=== PATIENT | male | born 1990 | race Caucasian/White ===

== ENCOUNTER 2019-09-14 09:35 | Inpatient (IN) | payer OTHER ==
[~2019-09-14] VITALS: Ht 172.7 cm; Wt 70.0 kg
[~2019-09-14 09:35] MED LIST: AMOX500C2 PO; BENZ100C18 PO; CEFP500T4 PO; CRUT1EAC16 MC; HYDR-34 PO; HYDR-3720 PO; LVT.1T PO; METH4TAB PO
[2019-09-14] MEDS ORDERED: LEVO125T6 PO (09:56)
[2019-09-14] MEDS ORDERED: KETOROLAC 30 MG/ML VIAL IVP STA (10:05)
[2019-09-14] MEDS ORDERED: LACTATED RINGERS 1,000 ML IV STA (10:05)
--- NOTE | 2019-09-14 10:12 | ED General ---
General Chief Complaint: Abdominal/GI Problems Stated Complaint: N/V;BODY ACHES Nursing Triage Note: SENT OVER FROM [facility] FOR DEHYDRATION. PT COMPLIANS OF N/V SINCE SAT Nursing Sepsis Screen: No Definite Risk Source of Information: Patient, Family Exam Limitations: No Limitations History of Present Illness Date Seen by Provider: Sep 14, 2019 Time Seen by Provider: 09:55 Initial Comments Here with report of body aches, chills, vomiting, weakness and overall feeling terrible for the last 3-4 days. Went to the [facility] today and was told to come here due to concerns of dehydration. Patient has been able to drink some and did have a little chicken soup yesterday. He has vomited after drinking and vomits after eating as well. He has not had anything for the pain today. Denies diarrhea currently. Denies significant cough. Timing/Duration: 3-4 Days Severity: Moderate Associated Systoms: No Chest Pain, No Cough; Fever/Chills, Malaise, Nausea/Vomiting; No Rash; Shortness of Air (with activity), Weakness Allergies and Home Medications Allergies Coded Allergies: No Known Drug Allergies (Unverified , 12/04/11) Patient Home Medication List Home Medication List Reviewed: Yes Review of Systems Review of Systems Constitutional: see HPI, malaise, weakness EENTM: see HPI Respiratory: see HPI; No cough; dyspnea on exertion Cardiovascular: No chest pain, No edema Gastrointestinal: No abdominal pain; nausea, vomiting Genitourinary: decreased output; No pain Musculoskeletal: No back pain; muscle pain Skin: no symptoms reported Psychiatric/Neurological: No Symptoms Reported Past Ruccxte-Otwsum-Igbjpp Hx Past Med/Social Hx: Reviewed Nursing Past Med/Soc Hx Patient Social History Alcohol Use: Occasionally Uses Recreational Drug Use: No Smoking Status: Never a Smoker Recent Foreign Travel: No Contact w/Someone Who Travel: No Recent Infectious Disease Expo: No Past Medical History Surgeries: No Respiratory: No Cardiac: No Neurological: No Reproductive Disorders: No Sexually Transmitted Disease: No HIV/AIDS: No Gastrointestinal: No Musculoskeletal: No Endocrine: Yes Hyperthyroidism Cancer: No Psychosocial: No Integumentary: No Blood Disorders: No Family Medical History Reviewed Nursing Family Hx No Pertinent Family Hx Physical Exam Vital Signs Vital Signs - First Documented 09/14/19 09:41 Temp 35.0 Pulse 68 Resp 16 B/P (MAP) 104/79 (87) Pulse Ox 100 O2 Delivery Room Air Capillary Refill : Less Than 3 Seconds Height, Weight, BMI Height: 5'8" Weight: 160lbs. oz. 72.677909db; 24.00 BMI Method:Stated General Appearance: No Apparent Distress, WD/WN HEENT: PERRL/EOMI, TMs Normal, Pharynx Normal Neck: Full Range of Motion, Normal Inspection, Non Tender, Supple Respiratory: Chest Non Tender, Lungs Clear, Normal Breath Sounds Cardiovascular: Regular Rate, Rhythm, No Murmur Gastrointestinal: Normal Bowel Sounds, Non Tender, Soft Back: Normal Inspection, No CVA Tenderness, No Vertebral Tenderness Extremity: Normal Range of Motion, Non Tender Neurologic/Psychiatric: Alert, Oriented x3 Skin: Normal Color, Warm/Dry Progress/Results/Core Measures Suspected Sepsis Recent Fever Within 48 Hours: No Infection Criteria Present: Suspected New Infection New/Unexplained Altered Menta: No Sepsis Screen: No Definite Risk SIRS Temperature: Pulse: 68 Respiratory Rate: 16 Laboratory Tests 09/14/19 10:18: White Blood Count 5.4 Blood Pressure 104 /79 Mean: 87 Laboratory Tests 09/14/19 10:18: Creatinine 1.33H, Platelet Count 287, Total Bilirubin 1.1H Results/Orders Lab Results Laboratory Tests Test 09/14/19 10:05 09/14/19 10:18 Range/Units Urine Color YELLOW Urine Clarity CLEAR Urine pH 6.0 5-9 Urine Specific Leonard 1.025 H 1.016-1.022 Urine Protein NEGATIVE NEGATIVE Urine Glucose (UA) NEGATIVE NEGATIVE Urine Ketones 2+ H NEGATIVE Urine Nitrite NEGATIVE NEGATIVE Urine Bilirubin NEGATIVE NEGATIVE Urine Urobilinogen 4.0 < = 1.0 MG/DL Urine Leukocyte Esterase NEGATIVE NEGATIVE Urine RBC (Auto) NEGATIVE NEGATIVE Urine RBC NONE /HPF Urine WBC NONE /HPF Urine Squamous Epithelial Cells NONE /HPF Urine Crystals NONE /LPF Urine Bacteria NEGATIVE /HPF Urine Casts NONE /LPF Urine Mucus SMALL H /LPF Urine Culture Indicated NO White Blood Count 5.4 4.3-11.0 10^3/uL Red Blood Count 5.47 4.35-5.85 10^6/uL Hemoglobin 16.3 13.3-17.7 G/DL Hematocrit 42 40-54 % Mean Corpuscular Volume 77 L 80-99 FL Mean Corpuscular Hemoglobin 30 25-34 PG Mean Corpuscular Hemoglobin Concent 39 H 32-36 G/DL Red Cell Distribution Width 13.3 10.0-14.5 % Platelet Count 287 130-400 10^3/uL Mean Platelet Volume 9.8 7.4-10.4 FL Neutrophils (%) (Auto) 61 42-75 % Lymphocytes (%) (Auto) 25 12-44 % Monocytes (%) (Auto) 10 0-12 % Eosinophils (%) (Auto) 4 0-10 % Basophils (%) (Auto) 0 0-10 % Neutrophils # (Auto) 3.3 1.8-7.8 X 10^3 Lymphocytes # (Auto) 1.4 1.0-4.0 X 10^3 Monocytes # (Auto) 0.5 0.0-1.0 X 10^3 Eosinophils # (Auto) 0.2 0.0-0.3 10^3/uL Basophils # (Auto) 0.0 0.0-0.1 10^3/uL Sodium Level 110 *L 135-145 MMOL/L Potassium Level 4.8 3.6-5.0 MMOL/L Chloride Level 78 L 98-107 MMOL/L Carbon Dioxide Level 20 L 21-32 MMOL/L Anion Gap 12 5-14 MMOL/L Blood Urea Nitrogen 15 7-18 MG/DL Creatinine 1.33 H 0.60-1.30 MG/DL Estimat Glomerular Filtration Rate > 60 BUN/Creatinine Ratio 11 Glucose Level 75 70-105 MG/DL Calcium Level 10.0 8.5-10.1 MG/DL Corrected Calcium 8.5-10.1 MG/DL Total Bilirubin 1.1 H 0.1-1.0 MG/DL Aspartate Amino Transf (AST/SGOT) 60 H 5-34 U/L Alanine Aminotransferase (ALT/SGPT) 37 0-55 U/L Alkaline Phosphatase 79 40-136 U/L Total Protein 8.8 H 6.4-8.2 GM/DL Albumin 5.0 H 3.2-4.5 GM/DL Micro Results Microbiology 09/14/19 Influenza Types A,B Antigen (NELSY) - Final, Complete My Orders Orders - REGAN SHERMAN MD Influenza A And B Antigens (09/14/19 09:44) Cbc With Automated Diff (09/14/19 10:05) Comprehensive Metabolic Panel (1/14/20 10:05) Ua Culture If Indicated (09/14/19 10:05) Lactated Ringers (Lr 1000 Ml Iv Solution (09/14/19 10:05) Ed Iv/Invasive Line Start (09/14/19 10:05) Ketorolac Injection (Toradol Injection) (09/14/19 10:05) Thyroid Analyzer (09/14/19 11:33) Ns Iv 1000 Ml (Sodium Chloride 0.9%) (09/14/19 11:34) Ed Iv/Invasive Line Start (09/14/19 11:38) Ns Iv 500 Ml (Sodium Chloride 0.9%) (09/14/19 11:38) Vital Signs/I&O 09/14/19 09:41 Temp 35.0 Pulse 68 Resp 16 B/P (MAP) 104/79 (87) Pulse Ox 100 O2 Delivery Room Air Capillary Refill : Less Than 3 Seconds Blood Pressure Mean: 87 Progress Note : Progress Note Seen and evaluated. Given like symptoms, we will go ahead and initiate rehydration with IV fluids. LR 1 L bolus. Labs and UA ordered. Toradol 30 mg IV. Monitor patient. 1140: Sodium resulted in his low. I do believe this is related to volume loss from vomiting. There is no edema. He is actually feeling better now and is not dizzy and was able to stand without difficulty. Blood pressure st ill is a little low and we will go ahead and do a 500 mL bolus of normal saline and then initiate normal saline at 125 an hour. I discussed the case with Dr. Wilkerson and she accepts patient for admission, observation status. Patient and family agree to plan. Departure Communication (Admissions) Time/Spoke to Admitting Phy: 11:40 Impression Primary Impression: Hyponatremia Additional Impression: Nausea with vomiting Qualified Codes: R11.2 - Nausea with vomiting, unspecified Disposition: ADMITTED INPATIENT Condition: Stable Admissions Decision to Admit Reason: Admit from ER (General) Decision to Admit/Date: Sep 14, 2019 Time/Decision to Admit Time: 11:40 Departure-Patient Inst. Referrals: OTILIO MCKEON DO (PCP) Primary Care Physician DANNY MCKEON, DNP (Family) Primary Care Physician REGAN SHERMAN MD Sep 14, 2019 10:12
[2019-09-14 10:31] LABS: BASOPHILS % (AUTO) 0 % (0-10); EOSINOPHILS # (AUTO) 0.2 10^3/uL (0.0-0.3); EOSINOPHILS % (AUTO) 4 % (0-10); HEMATOCRIT 42 % (40-54); HEMOGLOBIN 16.3 G/DL (13.3-17.7); LYMPHOCYTES # (AUTO) 1.4 X 10^3 (1.0-4.0); LYMPHOCYTES % (AUTO) 25 % (12-44); MEAN CORPUSCULAR HEMOGLOBIN 30 PG (25-34); MEAN CORPUSCULAR HGB CONC 39 G/DL (32-36); MEAN CORPUSCULAR VOLUME 77 FL (80-99); MEAN PLATELET VOLUME 9.8 FL (7.4-10.4); MONOCYTES # (AUTO) 0.5 X 10^3 (0.0-1.0); MONOCYTES % (AUTO) 10 % (0-12); NEUTROPHILS # (AUTO) 3.3 X 10^3 (1.8-7.8); NEUTROPHILS % (AUTO) 61 % (42-75); PLATELET COUNT 287 10^3/uL (130-400); RED CELL DISTRIBUTION WIDTH 13.3 % (10.0-14.5); WHITE BLOOD COUNT 5.4 10^3/uL (4.3-11.0)
[2019-09-14 10:32] LABS: BILIRUBIN,URINE NEGATIVE (NEGATIVE); CLARITY,URINE CLEAR; COLOR,URINE YELLOW; GLUCOSE, URINE (UA) NEGATIVE (NEGATIVE); KETONES,URINE 2+ (NEGATIVE); LEUKOCYTE ESTERASE ,URINE NEGATIVE (NEGATIVE); NITRITE,URINE NEGATIVE (NEGATIVE); PROTEIN,URINE NEGATIVE (NEGATIVE)
[2019-09-14 10:37] LABS: BACTERIA,URINE NEGATIVE /HPF
[2019-09-14 10:53] LABS: ALANINE AMINOTRANSFERASE 37 U/L (0-55); ALKALINE PHOSPHATASE 79 U/L (40-136); BILIRUBIN,TOTAL 1.1 MG/DL (0.1-1.0); BUN/CREATININE RATIO 11; CARBON DIOXIDE 20 MMOL/L (21-32); CREATININE SERUM 1.33 MG/DL (0.60-1.30); GFR ESTIMATED > 60; GLUCOSE 75 MG/DL (70-105); POTASSIUM 4.8 MMOL/L (3.6-5.0); TOTAL PROTEIN 8.8 GM/DL (6.4-8.2)
[2019-09-14 11:20] LABS: CHLORIDE 78 MMOL/L (98-107); SODIUM 110 MMOL/L (135-145)
--- NOTE | 2019-09-14 11:22 | NUR ---
IN TALKING TO PT AT THIS TIME.
--- NOTE | 2019-09-14 11:30 | NUR ---
BP IN THE 80'S. PT ASYMTOMATIC. DR FELIX.
[2019-09-14] MEDS ORDERED: NS IV 500 ML 500 ML IV ONE ×2 (11:38→17:15)
[2019-09-14] MEDS: NS IV 1000 ML 1,000 ML IV ONE ×2 (11:39→12:23)
--- NOTE | 2019-09-14 12:05 | NUR ---
BP CONTINUES TO BE IN THE 80'S. WILL HOLD IN ER TILL BP IS HIGHER FOR ADMIT. NOTIFIED.
--- NOTE | 2019-09-14 12:44 | NUR ---
JADEN RAMON admitted to room 405-1, with an admitting diagnosis of hyponatremia , on 09/14/19 from ED via wheelchair, accompanied by staff. JADEN RAMON introduced to surroundings, call light, bed controls, phone, TV, temperature control, lights, meal times, smoking policy, visitor policy, side rail policy, bathrooms and showers. Patient Rights given to patient in the handbook. JADEN RAMON verbalizes understanding that [facility] is not responsible for the loss or damage to any personal effects or valuables that are kept in the patients possession during their hospitalization. The following Patient Care Plans were discussed with the patient: Discharge Planning, dehydration, medications, and pain management. JADEN RAMON verbalizes understanding of Interdisciplinary Patient Education. Patient and/or family were informed about the Rapid Response Team and its purpose.
[2019-09-14 12:49] LABS: TSH (THYROID ANALYZER) 271.18 UIU/ML (0.35-4.94)
[2019-09-14 12:50] LABS: FREE T4 (FREE THYROXINE) 0.64 NG/DL (0.70-1.48)
[2019-09-14] MEDS ORDERED: ONDANSETRON 4 MG/2 ML (SDV) Z0FRAN IV PRN (13:15)
[2019-09-14] MEDS ORDERED: CATHETER FLUSH 10 ML SYR IV PRN (13:15)
[2019-09-14] MEDS ORDERED: FLU QUADRIvalent (5+ YOA) 2019-2020 (AFLURIA) 0.5 ML IM ONE (13:15)
[2019-09-14 13:20] VITALS: BP 104/70
[2019-09-14] MEDS ORDERED: LEVOTHYROXINE 100 MCG INJ (SYNTHROID) VIAL IV NR (14:30)
--- NOTE | 2019-09-14 14:52 | History & Physical-Hospitalist ---
History of Present Illness HPI/Chief Complaint Patient is a 29-year-old male with past medical history of hyperthyroidism status post ablation who presented to the emergency department due to nausea and vomiting. He states the symptoms started 3-4 days ago. He had no sick contacts. He was seen at urgent care today and recommended evaluation in the emergency department. In the ER he was found to have a sodium of 110. Upon further evaluation he was found to have a TSH of 271 and thus he was further questioned about his compliance with Synthroid. He states he misses over half of his doses. He had also been off of it for a few months. He was mildly hypotensive with a systolic in 80s in the emergency room. Source: patient Exam Limitations: no limitations Date Seen 09/14/19 Time Seen by a Provider: 14:47 Attending Physician Vignesh Wilkerson MD PCP Alexx Cabrera DO Referring Physician Date of Admission Sep 14, 2019 at 11:57 Home Medications & Allergies Home Medications Reviewed patient Home Medication Reconciliation performed by pharmacy medication reconciliations diamond powder technician and/or nursing. Patients Allergies have been reviewed. Allergies Allergies Coded Allergies No Known Drug Allergies (Unverified12/04/11) Past Qvfcmkv-Mwpayh-Ndzoiv Hx Past Med/Social Hx: Reviewed Nursing Past Med/Soc Hx Patient Social History Alcohol Use: Rarely Uses Recreational Drug Use: No Smoking Status: Never a Smoker Recent Foreign Travel: No Contact w/other who traveled: No Recent Infectious Disease Expo: No Past Medical History Reproductive: No Sexually Transmitted Disease: No HIV/AIDS: No Endocrine: Hypothyroidsim History of Blood Disorders: No Family History Reviewed Nursing Family Hx No Pertinent Family Hx Review of Systems Constitutional: malaise, weakness EENTM: no symptoms reported Respiratory: no symptoms reported Cardiovascular: no symptoms reported Gastrointestinal: nausea, vomiting Physical Exam Physical Exam Vital Signs Vital Signs - First Documented 09/14/19 09:41 Temp 35.0 Pulse 68 Resp 16 B/P (MAP) 104/79 (87) Pulse Ox 100 O2 Delivery Room Air Capillary Refill : Less Than 3 Seconds Height, Weight, BMI Height: 5'8" Weight: 160lbs. oz. 72.151461fr; 23.10 BMI Method:Stated General Appearance: No Apparent Distress, Thin, Other (ill appearing) HEENT: No Scleral Icterus (L), No Scleral Icterus (R); Other (dry mucus membranes) Neck: Normal Inspection, Supple; No Thyromegaly Respiratory: Lungs Clear, No Accessory Muscle Use, No Respiratory Distress Cardiovascular: Regular Rate, Rhythm, No Murmur Gastrointestinal: Normal Bowel Sounds, Non Tender, Soft Extremity: No Calf Tenderness, No Pedal Edema Neurologic/Psychiatric: Alert, Oriented x3, Normal Mood/Affect Skin: Normal Color, Warm/Dry; No Diaphoresis Results Results/Procedures Labs Laboratory Tests 09/14/19 10:18 09/14/19 15:20 Patient resulted labs reviewed. Assessment/Plan Admission Diagnosis Myxedema Coma Admission Status: Inpatient Order (span 2 midnights) Reason for Inpatient Admission: IV synthroid,. high risk for decompsenation, anticipate more thwn 2 midnights Assessment and Plan myxedema coma Hypothyroidism Hypothermic and relatively bradycardiac (inappropriately normal HR for hy potensive and dehydration) IV synthroid Solu Cortef Noncompliant with meds Dr Vazquez consulted, appreciate recs Hypovolemic Hyponatremia Dehydration IVF Repeat BMP this afternoon Nausea and Vomiting Continue IVF Zofran and Phenergan Diagnosis/Problems Diagnosis/Problems (1) Myxedema Status: Acute (2) Hypothyroidism Status: Acute Qualifiers: Hypothyroidism type: postablative Qualified Codes: E89.0 - Postprocedural hypothyroidism (3) Dehydration Status: Acute (4) Hyponatremia Status: Acute (5) Nausea with vomiting Status: Acute Qualifiers: Vomiting type: unspecified Vomiting Intractability: non-intractable Qualified Codes: R11.2 - Nausea with vomiting, unspecified Clinical Quality Measures DVT/VTE Risk/Contraindication: RFS Level Per Nursing on Admit: 0=No Risk/No VTE PPX VIGNESH WILKERSON MD Sep 14, 2019 14:52
--- NOTE | 2019-09-14 15:45 | NUR ---
PT TRANSFERRED TO [facility] VIA BED W/ 4TH FLOOR STAFF. PT A&O, NO C/O AT THIS TIME. IVF INFUSING. VSS, PT PLACED ON MONITORS.
--- NOTE | 2019-09-14 15:50 | NUR ---
Report called to Brenda RN, patient transferred to room CU 4, patient belongings with patient.
[2019-09-14 15:52] LABS: BUN/CREATININE RATIO 14; CALCIUM 7.8 MG/DL (8.5-10.1); CARBON DIOXIDE 20 MMOL/L (21-32); CHLORIDE 84 MMOL/L (98-107); CREATININE SERUM 0.99 MG/DL (0.60-1.30); GFR ESTIMATED > 60; GLUCOSE 77 MG/DL (70-105); POTASSIUM 4.3 MMOL/L (3.6-5.0)
--- NOTE | 2019-09-14 15:58 | Pulmonary Consultation ---
History of Present Illness History of Present Illness Date of Admission Allergies and Home Medications Allergies Coded Allergies: No Known Drug Allergies (Unverified , 12/04/11) Home Medications Levothyroxine Sodium 125 Mcg Tablet, 125 MCG PO DAILY, (Reported) Past Dhcguio-Qqyalk-Gddwgg Hx Past Med/Social Hx: Reviewed Nursing Past Med/Soc Hx Patient Social History Alcohol Use: Rarely Uses Recreational Drug Use: No Smoking Status: Never a Smoker Recent Foreign Travel: No Contact w/Someone Who Travel: No Recent Infectious Disease Expo: No Past Medical History Surgeries: No Respiratory: No Cardiac: No Neurological: No Reproductive Disorders: No Sexually Transmitted Disease: No HIV/AIDS: No Gastrointestinal: No Musculoskeletal: No Endocrine: Yes Hypothyroidsim Cancer: No Psychosocial: No Integumentary: No Blood Disorders: No Family Medical History Reviewed Nursing Family Hx No Pertinent Family Hx Sepsis Event Evaluation Height, Weight, BMI Height: 5'8" Weight: 160lbs. oz. 72.785080ci; 23.10 BMI Method:Stated Exam Exam Vital Signs Date Time Temp Pulse Resp B/P (MAP) Pulse Ox O2 Delivery O2 Flow Rate FiO2 09/14/19 13:20 36.3 79 20 104/70 100 Room Air 09/14/19 13:06 Room Air 09/14/19 12:35 69 18 109/72 98 Room Air 09/14/19 09:41 35.0 68 16 104/79 (87) 100 Room Air Height & Weight Height: 5'8" Weight: 160lbs. oz. 72.193186vq; 23.10 BMI Method:Stated General Appearance: No Apparent Distress, WD/WN HEENT: PERRL/EOMI, TMs Normal, Pharynx Normal Neck: Full Range of Motion, Normal Inspection, Non Tender, Supple Respiratory: Chest Non Tender, Lungs Clear, Normal Breath Sounds Cardiovascular: Regular Rate, Rhythm, No Murmur Capillary Refill: Less Than 3 Seconds Extremity: Normal Range of Motion, Non Tender Neurologic/Psychiatric: Alert, Oriented x3 Skin: Normal Color, Warm/Dry Results Lab Laboratory Tests 09/14/19 10:18 09/14/19 15:20 Assessment/Plan Assessment/Plan Hypothyroind with myxedema coma IV synthroid 50mcg daily Solu Cortef Noncompliant with meds Hypovolemic Hyponatremia -Monitor Dehydration IVF Repeat BMP this afternoon Intractable Nausea and Vomiting Continue IVF Zofran and Hectorergan MARY ANN HINDS DO Sep 14, 2019 15:58
[2019-09-14 16:00] VITALS: BP 94/65
[2019-09-14] MEDS: NS IV 1000 ML 1,000 ML IV SCH ×2 (16:01→20:34)
[2019-09-14] MEDS: HYDROCORTISONE 100 MG/2 ML (Solu-CORTEF) VIAL IV SCH ×2 (16:01→22:01)
[2019-09-14 16:31] LABS: SODIUM 110 MMOL/L (135-145)
[2019-09-14] MEDS ORDERED: NS IV 500 ML 500 ML ONE (17:07)
--- NOTE | 2019-09-14 17:09 | NUR ---
PT'S BP DECREASED TO 80'S/50'S. PT ASYMPTOMATIC. DR GILBERT NOTIFIED. NEW ORDERS RECEIVED.
[2019-09-14 20:00] VITALS: BP 98/53
[2019-09-15] VITALS (7 sets, daily range): BP systolic 84–99; BP diastolic 54–71
[2019-09-15] MEDS: NS IV 1000 ML 1,000 ML IV SCH ×4 (00:08→21:24)
[2019-09-15 03:41] LABS: HEMOGLOBIN 13.7 G/DL (13.3-17.7); WHITE BLOOD COUNT 5.5 10^3/uL (4.3-11.0)
[2019-09-15 03:57] LABS: BUN/CREATININE RATIO 10; CALCIUM 8.5 MG/DL (8.5-10.1); CARBON DIOXIDE 18 MMOL/L (21-32); CHLORIDE 94 MMOL/L (98-107); CREATININE SERUM 1.24 MG/DL (0.60-1.30); GFR ESTIMATED > 60; GLUCOSE 121 MG/DL (70-105); MAGNESIUM 1.9 MG/DL (1.6-2.4); PHOSPHORUS 3.7 MG/DL (2.3-4.7); POTASSIUM 5.1 MMOL/L (3.6-5.0)
[2019-09-15 04:03] LABS: SODIUM 120 MMOL/L (135-145)
[2019-09-15 04:20] LABS: FREE T4 (FREE THYROXINE) 0.74 NG/DL (0.70-1.48)
--- NOTE | 2019-09-15 05:13 | Pulmonary Progress Note ---
Subjective Time Seen by a Provider: 05:13 Subjective/Events-last exam Pt is doing better. Sepsis Event Evaluation Height, Weight, BMI Height: 5'8" Weight: 160lbs. oz. 72.800178ye; 23.10 BMI Method:Stated Exam Exam Vital Signs Date Time Temp Pulse Resp B/P (MAP) Pulse Ox O2 Delivery O2 Flow Rate FiO2 09/15/19 03:58 36.6 74 14 93/71 (78) 99 Room Air 09/15/19 01:00 75 09/15/19 00:00 36.0 81 12 93/64 (74) 97 Room Air 09/14/19 20:00 85 12 98/53 (68) 99 Room Air 09/14/19 20:00 36.8 09/14/19 20:00 99 Room Air 09/14/19 19:00 82 09/14/19 16:50 88 09/14/19 16:00 36.5 09/14/19 16:00 79 14 94/65 (75) 97 Room Air 09/14/19 15:45 Room Air 09/14/19 13:20 36.3 79 20 104/70 100 Room Air 09/14/19 13:06 Room Air 09/14/19 12:35 69 18 109/72 98 Room Air 09/14/19 09:41 35.0 68 16 104/79 (87) 100 Room Air I & O 09/15/19 07:00 Intake Total 5970 ml Output Total 2000 ml Balance 3970 ml Height & Weight Height: 5'8" Weight: 160lbs. oz. 72.990747jk; 23.10 BMI Method:Stated General Appearance: No Apparent Distress, Thin, Other (ill appearing) HEENT: No Scleral Icterus (L), No Scleral Icterus (R); Other (dry mucus membranes) Neck: Normal Inspection, Supple; No Thyromegaly Respiratory: Lungs Clear, No Accessory Muscle Use, No Respiratory Distress Cardiovascular: Regular Rate, Rhythm, No Murmur Capillary Refill: Less Than 3 Seconds Extremity: No Calf Tenderness, No Pedal Edema Neurologic/Psychiatric: Alert, Oriented x3, Normal Mood/Affect Skin: Normal Color, Warm/Dry; No Diaphoresis Results Lab Laboratory Tests 09/14/19 10:18 09/14/19 15:20 09/15/19 03:26 Assessment/Plan Assessment/Plan Hypothyroind with myxedema coma Cont IV synthroid 50mcg daily Continue Solu Cortef Noncompliant with meds Hypovolemic Hyponatremia -Monitor -Improving continue to monitor and repeat labs at 1300 Hyperkalemia -Montior Dehydration IVF Repeat BMP this afternoon Intractable Nausea and Vomiting - Improved Continue IVF Zofran and Phenergan MARY ANN HINDS DO Sep 15, 2019 05:13
[2019-09-15] MEDS: HYDROCORTISONE 100 MG/2 ML (Solu-CORTEF) VIAL IV SCH ×3 (06:15→21:24)
[2019-09-15] MEDS ORDERED: LEVOTHYROXINE 100 MCG INJ (SYNTHROID) VIAL IV SCH (09:00)
--- NOTE | 2019-09-15 13:23 | Progress Note - Hospitalist ---
Subjective HPI/CC On Admission Date Seen by Provider: Sep 15, 2019 Time Seen by Provider: 13:20 Patient is a 29-year-old male with past medical history of hyperthyroidism status post ablation who presented to the emergency department due to nausea and vomiting. He states the symptoms started 3-4 days ago. He had no sick contacts. He was seen at urgent care today and recommended evaluation in the emergency department. In the ER he was found to have a sodium of 110. Upon further evaluation he was found to have a TSH of 271 and thus he was further questioned about his compliance with Synthroid. He states he misses over half of his doses. He had also been off of it for a few months. He was mildly hypotensive with a systolic in 80s in the emergency room. Subjective/Events-last exam Pt reports feeling much better today. No complaints. States he feels better today than he did even a week ago before symptoms started. Objective Exam Vital Signs Vital Signs Date Time Temp Pulse Resp B/P (MAP) Pulse Ox O2 Delivery O2 Flow Rate FiO2 09/15/19 08:00 36.6 85 9 90/64 (73) 100 Room Air Capillary Refill : Less Than 3 Seconds General Appearance: No Apparent Distress, WD/WN Respiratory: Lungs Clear, No Respiratory Distress Cardiovascular: Regular Rate, Rhythm, No Murmur Extremity: No Calf Tenderness, No Pedal Edema Neurologic/Psychiatric: Alert, Oriented x3, Normal Mood/Affect Results/Procedures Lab Laboratory Tests 09/14/19 15:20 09/15/19 03:26 Patient resulted labs reviewed. Assessment/Plan Assessment and Plan Assess & Plan/Chief Complaint myxedema coma Hypothyroidism Much improved today IV synthroid today, transition to oral tomorrow Solu Cortef Noncompliant with meds Dr Vazquez consulted, appreciate recs Hypovolemic Hyponatremia Dehydration Na improved to 120 today Trend Nausea and Vomiting- resolved eating quesadilla today Zofran and Phenergan Diagnosis/Problems Diagnosis/Problems (1) Myxedema Status: Acute (2) Hypothyroidism Status: Acute Qualifiers: Hypothyroidism type: postablative Qualified Codes: E89.0 - Postprocedural hypothyroidism (3) Dehydration Status: Acute (4) Hyponatremia Status: Acute (5) Nausea with vomiting Status: Acute Qualifiers: Vomiting type: unspecified Vomiting Intractability: non-intractable Qualified Codes: R11.2 - Nausea with vomiting, unspecified Clinical Quality Measures DVT/VTE Risk/Contraindication: RFS Level Per Nursing on Admit: 0=No Risk/No VTE PPX VIGNESH GILBERT MD Sep 15, 2019 13:23
[2019-09-15 13:35] LABS: BUN/CREATININE RATIO 9; CALCIUM 8.5 MG/DL (8.5-10.1); CARBON DIOXIDE 22 MMOL/L (21-32); CHLORIDE 100 MMOL/L (98-107); CREATININE SERUM 1.26 MG/DL (0.60-1.30); GFR ESTIMATED > 60; GLUCOSE 112 MG/DL (70-105); POTASSIUM 4.2 MMOL/L (3.6-5.0); SODIUM 129 MMOL/L (135-145)
[2019-09-16] MEDS ORDERED: MELATONIN 3 MG TABLET PO SCH (00:15)
[2019-09-16 04:14] LABS: BUN/CREATININE RATIO 11; CALCIUM 8.2 MG/DL (8.5-10.1); CARBON DIOXIDE 19 MMOL/L (21-32); CHLORIDE 105 MMOL/L (98-107); CREATININE SERUM 1.03 MG/DL (0.60-1.30); GFR ESTIMATED > 60; GLUCOSE 143 MG/DL (70-105); POTASSIUM 3.7 MMOL/L (3.6-5.0); SODIUM 132 MMOL/L (135-145)
[2019-09-16 04:50] VITALS: BP 94/52
--- NOTE | 2019-09-16 05:34 | Pulmonary Progress Note ---
Subjective Time Seen by a Provider: 06:24 Subjective/Events-last exam PT appears to be doing better. Sepsis Event Evaluation Height, Weight, BMI Height: 5'8" Weight: 160lbs. oz. 72.006557ue; 23.10 BMI Method:Stated Exam Exam Vital Signs Date Time Temp Pulse Resp B/P (MAP) Pulse Ox O2 Delivery O2 Flow Rate FiO2 09/16/19 04:50 35.3 86 20 94/52 (66) 99 Room Air 09/16/19 01:00 90 09/15/19 23:30 36.0 93 20 99/65 (76) 100 Room Air 09/15/19 20:00 Room Air 09/15/19 20:00 37.4 110 18 98/62 (74) 96 Room Air 09/15/19 19:00 101 09/15/19 16:00 37.1 93 16 99/64 (76) 95 Room Air 09/15/19 16:00 100 09/15/19 12:00 36.8 87 14 98/64 (75) 99 Room Air 09/15/19 08:00 36.6 85 9 90/64 (73) 100 Room Air 09/15/19 08:00 99 Room Air 09/15/19 06:35 97 I & O 09/16/19 07:00 Intake Total 1900 ml Output Total 2000 ml Balance -100 ml Height & Weight Height: 5'8" Weight: 160lbs. oz. 72.385806sn; 23.10 BMI Method:Stated General Appearance: No Apparent Distress, WD/WN HEENT: No Scleral Icterus (L), No Scleral Icterus (R); Other (dry mucus membranes) Neck: Normal Inspection, Supple; No Thyromegaly Respiratory: Lungs Clear, No Respiratory Distress Cardiovascular: Regular Rate, Rhythm, No Murmur Capillary Refill: Less Than 3 Seconds Extremity: No Calf Tenderness, No Pedal Edema Neurologic/Psychiatric: Alert, Oriented x3, Normal Mood/Affect Skin: Normal Color, Warm/Dry; No Diaphoresis Results Lab Laboratory Tests 09/14/19 10:18 09/14/19 15:20 09/15/19 03:26 09/15/19 13:10 09/16/19 03:42 Assessment/Plan Assessment/Plan Hypothyroind with myxedema coma Cont IV synthroid 50mcg daily Continue Solu Cortef Noncompliant with meds Hypovolemic Hyponatremia -Monitor -Improving continue to monitor and repeat labs at 1300 Hyperkalemia -Montior Dehydration IVF Repeat BMP this afternoon Intractable Nausea and Vomiting - Improved Continue IVF Zofran and Phenergan Pt appears to be doing better. I am going to sign off. Please call with any questions or concerns. MARY ANN HINDS DO Sep 16, 2019 05:34
[2019-09-16] MEDS ORDERED: LEVOTHYROXINE 125 MCG (LEVOTHROID) TABLET PO SCH (06:30)
[2019-09-16] MEDS: NS IV 1000 ML 1,000 ML IV SCH (06:35)
[2019-09-16] MEDS: HYDROCORTISONE 100 MG/2 ML (Solu-CORTEF) VIAL IV SCH (06:35)
[2019-09-16 07:41] VITALS: BP 97/65
[2019-09-16] MEDS ORDERED: LEVO125T6 PO (07:59)
--- NOTE | 2019-09-16 07:59 | Discharge Summary ---
Diagnosis/Chief Complaint Date of Admission Sep 14, 2019 at 20:21 Date of Discharge Admission Diagnosis Myxedema Coma Primary Care Sindhu Cabrerap,[facility] Discharge Diagnosis (1) Myxedema Status: Acute (2) Hypothyroidism Status: Acute (3) Dehydration Status: Acute (4) Hyponatremia Status: Acute (5) Nausea with vomiting Status: Acute Discharge Summary Procedures/Consulations Pulmonology- Dr Vazquez Discharge Physical Exam Allergies: Coded Allergies: No Known Drug Allergies (Unverified , 12/04/11) Vitals & I&Os Vital Signs Date Time Temp Pulse Resp B/P (MAP) Pulse Ox O2 Delivery O2 Flow Rate FiO2 09/16/19 07:42 Room Air 09/16/19 07:41 36.4 80 16 97/65 (76) 96 General Appearance: No Apparent Distress, WD/WN Respiratory: Lungs Clear, No Respiratory Distress Cardiovascular: Regular Rate, Rhythm, No Murmur Neurologic/Psychiatric: Alert, Oriented x3 Hospital Course Pt presented to the ER due to nausea and vomiting and was found to be dehydrated along with evidence of myxedema. He was given IV fluid resuscitation and due to inability to take oral medications he was started on IV Synthroid. He was also started on IV steroids. He was found to be profoundly hyponatremic and this was treated with normal saline only as he had not mental status changes. He states he misses at least half his doses of Synthroid and his TSH was 271. He was started on his home Synthroid when he was able to tolerate PO and did well and was discharged home in stable condition. Labs (last 24 hrs) Microbiology 09/14/19 Influenza Types A,B Antigen (NELSY) - Final, Complete Patient resulted labs reviewed. Pending Labs Discussion & Recommendations Discharge Planning: >30 minutes discharge planning Discharge Home Medications: Active Scripts Active Levothyroxine Sodium 125 Mcg Tablet 125 Mcg PO DAILY Instructions to patient/family Please see electronic discharge instructions given to patient. Clinical Quality Measures DVT/VTE Risk/Contraindication: RFS Level Per Nursing on Admit: 0=No Risk/No VTE PPX Copy Copies To 1: OTILIO CABRERA DO Problem Qualifiers (1) Hypothyroidism: Hypothyroidism type: postablative Qualified Codes: E89.0 - Postprocedural hypothyroidism (2) Nausea with vomiting: Vomiting type: unspecified Vomiting Intractability: non-intractable Qualified Codes: R11.2 - Nausea with vomiting, unspecified VIGNESH GILBERT MD Sep 16, 2019 07:59
--- NOTE | 2019-09-16 08:01 | Discharge Inst-Simple/Standard ---
Discharge Inst-Standard Discharge Medications New, Converted or Re-Newed RX: Transmitted to Pharmacy Patient Instructions/Follow Up Plan of Care/Instructions/FU: Please continue to take your medications every day as written. Please follow up with your primary care nurse practioner in the next week. Activity as Tolerated: Yes Discharge Diet: No Restrictions Return to The Hospital For: Nausea, vomiting, confusion, abdomina pain, if you feel you are getting worse. VIGNESH GILBERT MD Sep 16, 2019 08:01
== END 2019-09-16 08:45 | disposition home or self-care (01) | DRG 81 ==
LOC: EDUNIT# 09:35 → ER 09:36 → 4TH 11:57 → ICU 16:42 → OBSVTOIN 20:21 → ICU 09-15 09:09 → CSD 09-15 11:27
PROVIDERS: ADMIT Family Medicine; ATTEND Family Medicine
DX: E03.5 Myxedema coma (principal); E87.1 Hypo-osmolality and hyponatremia; E86.0 Dehydration
CPT/HCPCS: 36415; 80048; 80053; 81000; 82533; 83735; 84100; 84439; 84443; 85025; 85027; 87804; 96361; 96374

== ENCOUNTER 2019-10-25 11:06 | Observation (INO) | payer OTHER ==
[~2019-10-25] VITALS: Ht 172.7 cm; Wt 69.9 kg
[~2019-10-25 11:06] MED LIST changes: +LEVO125T6 PO
[2019-10-25] MEDS ORDERED: NS IV 1000 ML 1,000 ML IV SCH (11:30)
--- NOTE | 2019-10-25 11:42 | ED General ---
General Chief Complaint: General Problems/Pain Stated Complaint: SOA Nursing Triage Note: AMB TO ED WANTS THYROID CHECKED. REPORTS WE CAN DO IT FASTER THAN PCP Nursing Sepsis Screen: No Definite Risk Source of Information: Patient Exam Limitations: No Limitations History of Present Illness Date Seen by Provider: Oct 25, 2019 Time Seen by Provider: 11:40 Initial Comments To ER with reports of shortness of breath for several weeks, this is how he felt last month when he was admitted for hyponatremia/myxedema. He's been compliant with taking all of his levothyroxine at home he states, has not missed any doses. Denies cough denies fevers or chills. Timing/Duration: Other Allergies and Home Medications Allergies Coded Allergies: No Known Drug Allergies (Unverified , 12/04/11) Home Medications Levothyroxine Sodium 125 Mcg Tablet, 125 MCG PO DAILY Prescribed by: VIGNESH WILKERSON on 09/16/19 0759 Patient Home Medication List Home Medication List Reviewed: Yes Review of Systems Review of Systems Constitutional: see HPI; No chills, No fever EENTM: see HPI Respiratory: no symptoms reported, see HPI, short of breath Cardiovascular: no symptoms reported Genitourinary: no symptoms reported Musculoskeletal: no symptoms reported Skin: no symptoms reported Psychiatric/Neurological: No Symptoms Reported Hematologic/Lymphatic: No Symptoms Reported Past Fsoqsjk-Iomeyy-Iswbxj Hx Patient Social History Alcohol Use: Denies Use Recreational Drug Use: No Smoking Status: Never a Smoker Recent Foreign Travel: No Contact w/Someone Who Travel: No Recent Infectious Disease Expo: No Past Medical History Surgeries: No Respiratory: No Cardiac: No Neurological: No Reproductive Disorders: No Sexually Transmitted Disease: No HIV/AIDS: No Gastrointestinal: No Musculoskeletal: No Endocrine: Yes Hypothyroidsim Cancer: No Psychosocial: No Integumentary: No Blood Disorders: No Family Medical History No Pertinent Family Hx Physical Exam Vital Signs Vital Signs - First Documented 10/25/19 11:22 Temp 36.7 Pulse 96 B/P (MAP) 92/58 (69) Pulse Ox 100 O2 Delivery Room Air Capillary Refill : Less Than 3 Seconds Height, Weight, BMI Height: 5'8" Weight: 160lbs. oz. 72.238676ou; 22.00 BMI Method:Stated General Appearance: No Apparent Distress, WD/WN, Other (alert and oriented, conversive) Eyes: Bilateral Eye Normal Inspection, Bilateral Eye PERRL, Bilateral Eye EOMI HEENT: PERRL/EOMI, TMs Normal Neck: Full Range of Motion, Normal Inspection Respiratory: Normal Breath Sounds, No Accessory Muscle Use, No Respiratory Distress Cardiovascular: Regular Rate, Rhythm, Normal Peripheral Pulses Gastrointestinal: Normal Bowel Sounds, Non Tender, Soft Extremity: Normal Capillary Refill, Normal Inspection Neurologic/Psychiatric: Alert, Oriented x3 Skin: Normal Color, Warm/Dry Progress/Results/Core Measures Suspected Sepsis Recent Fever Within 48 Hours: No Infection Criteria Present: None New/Unexplained Altered Menta: No Sepsis Screen: No Definite Risk SIRS Temperature: Pulse: 96 Respiratory Rate: Laboratory Tests 10/25/19 11:33: White Blood Count 4.2L Blood Pressure 92 /58 Mean: 69 Laboratory Tests 10/25/19 11:33: Creatinine 1.15, Platelet Count 289, Total Bilirubin 0.7 Results/Orders Lab Results Laboratory Tests Test 10/25/19 11:33 Range/Units White Blood Count 4.2 L 4.3-11.0 10^3/uL Red Blood Count 4.37 4.35-5.85 10^6/uL Hemoglobin 13.4 13.3-17.7 G/DL Hematocrit 37 L 40-54 % Mean Corpuscular Volume 85 80-99 FL Mean Corpuscular Hemoglobin 31 25-34 PG Mean Corpuscular Hemoglobin Concent 36 32-36 G/DL Red Cell Distribution Width 13.1 10.0-14.5 % Platelet Count 289 130-400 10^3/uL Mean Platelet Volume 9.3 7.4-10.4 FL Neutrophils (%) (Auto) 50 42-75 % Lymphocytes (%) (Auto) 32 12-44 % Monocytes (%) (Auto) 11 0-12 % Eosinophils (%) (Auto) 6 0-10 % Basophils (%) (Auto) 0 0-10 % Neutrophils # (Auto) 2.1 1.8-7.8 X 10^3 Lymphocytes # (Auto) 1.4 1.0-4.0 X 10^3 Monocytes # (Auto) 0.5 0.0-1.0 X 10^3 Eosinophils # (Auto) 0.3 0.0-0.3 10^3/uL Basophils # (Auto) 0.0 0.0-0.1 10^3/uL Sodium Level 121 *L 135-145 MMOL/L Potassium Level 4.6 3.6-5.0 MMOL/L Chloride Level 90 L 98-107 MMOL/L Carbon Dioxide Level 26 21-32 MMOL/L Anion Gap 5 5-14 MMOL/L Blood Urea Nitrogen 20 H 7-18 MG/DL Creatinine 1.15 0.60-1.30 MG/DL Estimat Glomerular Filtration Rate > 60 BUN/Creatinine Ratio 17 Glucose Level 74 70-105 MG/DL Calcium Level 9.2 8.5-10.1 MG/DL Corrected Calcium 9.1 8.5-10.1 MG/DL Total Bilirubin 0.7 0.1-1.0 MG/DL Aspartate Amino Transf (AST/SGOT) 48 H 5-34 U/L Alanine Aminotransferase (ALT/SGPT) 59 H 0-55 U/L Alkaline Phosphatase 65 40-136 U/L Total Protein 7.0 6.4-8.2 GM/DL Albumin 4.1 3.2-4.5 GM/DL Thyroid Stimulating Hormone (TSH) 3.62 0.35-4.94 UIU/ML Free Thyroxine 1.18 0.70-1.48 NG/DL My Orders Orders - MARCELINO FOWLER APRN Thyroid Stimulating Hormone (10/25/19 11:29) Free T4 (Free Thyroxine) (10/25/19 11:29) Cbc With Automated Diff (10/25/19 11:29) Comprehensive Metabolic Panel (10/25/19 11:29) Ua Culture If Indicated (10/25/19 11:29) Ed Iv/Invasive Line Start (10/25/19 11:29) Ns Iv 1000 Ml (Sodium Chloride 0.9%) (10/25/19 11:30) Chest Pa/Lat (2 View) (10/25/19 11:29) Osmolality Serum (10/25/19 12:48) Cortisol Pm (10/25/19 12:48) Vital Signs/I&O 10/25/19 11:22 Temp 36.7 Pulse 96 B/P (MAP) 92/58 (69) Pulse Ox 100 O2 Delivery Room Air Capillary Refill : Less Than 3 Seconds Blood Pressure Mean: 69 Departure Communication (Admissions) Time/Spoke to Admitting Phy: 13:[address] Wilkerson, agrees with admit observation. Impression Primary Impression: Hyponatremia Disposition: ADMITTED INPATIENT Condition: Stable Admissions Decision to Admit Reason: Admit from ER (General) Decision to Admit/Date: Oct 25, 2019 Time/Decision to Admit Time: 13:07 Departure-Patient Inst. Referrals: OTILIO MCKEON DO (PCP) Primary Care Physician DANNY MCKEON, ALFA (Family) Primary Care Physician MARCELINO FOWLER APRN Oct 25, 2019 11:42
[2019-10-25 11:50] LABS: BASOPHILS % (AUTO) 0 % (0-10); EOSINOPHILS # (AUTO) 0.3 10^3/uL (0.0-0.3); EOSINOPHILS % (AUTO) 6 % (0-10); HEMATOCRIT 37 % (40-54); HEMOGLOBIN 13.4 G/DL (13.3-17.7); LYMPHOCYTES # (AUTO) 1.4 X 10^3 (1.0-4.0); LYMPHOCYTES % (AUTO) 32 % (12-44); MEAN CORPUSCULAR HEMOGLOBIN 31 PG (25-34); MEAN CORPUSCULAR HGB CONC 36 G/DL (32-36); MEAN CORPUSCULAR VOLUME 85 FL (80-99); MEAN PLATELET VOLUME 9.3 FL (7.4-10.4); MONOCYTES # (AUTO) 0.5 X 10^3 (0.0-1.0); MONOCYTES % (AUTO) 11 % (0-12); NEUTROPHILS # (AUTO) 2.1 X 10^3 (1.8-7.8); NEUTROPHILS % (AUTO) 50 % (42-75); PLATELET COUNT 289 10^3/uL (130-400); RED CELL DISTRIBUTION WIDTH 13.1 % (10.0-14.5); WHITE BLOOD COUNT 4.2 10^3/uL (4.3-11.0)
--- NOTE | 2019-10-25 12:08 | Diagnostic Imaging Report ---
Indication: Dyspnea PA and lateral views of the chest are obtained. Comparison is made to study of 12/04/2011. FINDINGS: Heart size and pulmonary vascularity are within normal limits, and the lungs are clear, bilaterally. IMPRESSION: Unremarkable chest. Dictated by: Dictated on workstation # [id number]
[2019-10-25 12:17] LABS: ALANINE AMINOTRANSFERASE 59 U/L (0-55); ALBUMIN 4.1 GM/DL (3.2-4.5); ALKALINE PHOSPHATASE 65 U/L (40-136); BILIRUBIN,TOTAL 0.7 MG/DL (0.1-1.0); BUN/CREATININE RATIO 17; CALCIUM 9.2 MG/DL (8.5-10.1); CARBON DIOXIDE 26 MMOL/L (21-32); CHLORIDE 90 MMOL/L (98-107); CREATININE SERUM 1.15 MG/DL (0.60-1.30); GFR ESTIMATED > 60; GLUCOSE 74 MG/DL (70-105); POTASSIUM 4.6 MMOL/L (3.6-5.0)
[2019-10-25 12:23] LABS: SODIUM 121 MMOL/L (135-145)
[2019-10-25 12:40] LABS: FREE T4 (FREE THYROXINE) 1.18 NG/DL (0.70-1.48)
--- NOTE | 2019-10-25 14:15 | NUR ---
JADEN RAMON admitted to room 410-1, with an admitting diagnosis of HYPONATREMIA, on 10/25/19 from ED via WHEELCHAIR, accompanied by ED RN. JADEN RAMON introduced to surroundings, call light, bed controls, phone, TV, temperature control, lights, meal times, smoking policy, visitor policy, side rail policy, bathrooms and showers. Patient Rights given to patient in the handbook. JADEN RMAON verbalizes understanding that [facility] is not responsible for the loss or damage to any personal effects or valuables that are kept in the patients posession during their hospitalization. The following Patient Care Plans were discussed with the PATIENT: Discharge Planning, ELECTROLYTE IMBALANCE and KNOWLEDGE DEFICIT. JADEN RAMON verbalizes understanding of Interdisciplinary Patient Education. Patient and/or family were informed about the Rapid Response Team and its purpose.
[2019-10-25 14:29] VITALS: BP 102/64
[2019-10-25] MEDS: NS IV 1000 ML 1,000 ML IV SCH ×2 (15:04→21:43)
[2019-10-25] MEDS ORDERED: LEVO125T6 PO (15:29)
[2019-10-25] MEDS ORDERED: MULT-1106 PO (15:30)
--- NOTE | 2019-10-25 15:30 | NUR ---
SPOKE WITH THE PT WELL GOING THRU THE EXT MED HISTORY TO COMPLETE THE MED REC. OTC MEDS: JESSICA
--- NOTE | 2019-10-25 15:50 | History & Physical-Hospitalist ---
[facility] 10/25/19 1550: History of Present Illness HPI/Chief Complaint Mr. Overton is a 29 yo WM who is presenting due to fatigue, restlessness, and shortness of breathe. He was recently hospitalized for hyponatremia, myxedema coma, dehydration, and hyponatremic hypovolemia, after repeated bouts of vomiting and inability to hold food down as well as stopping his Synthroid for about a month prior to his exacerbation. He was treated with Synthroid, glucocorticoids and fluids, resulting in a rapid recovery. He states that after his hospitalization, "he felt the best in his life". He stated that since this time, he has progressively been feeling worse, and the past 4-5 days has expressed a drastic worsening of his symptoms. He states that he has been adamantly taking his Synthroid, since his last hospitalization. He also commented on excessively drinking water throughout the day, guessing that he drinks '100 - 200 oz'. Source: patient Date Seen 10/25/19 Time Seen by a Provider: 14:30 Attending Physician Vignesh Gilbert MD PCP Alexx Cabrera DO Referring Physician Date of Admission Oct 25, 2019 at 12:46 Home Medications & Allergies Home Medications Reviewed patient Home Medication Reconciliation performed by pharmacy medication reconciliations instrumentation technician and/or nursing. Patients Allergies have been reviewed. Allergies Allergies Coded Allergies No Known Drug Allergies (Unverified12/04/11) Past Yzwwbdj-Yerjoe-Jgtxhu Hx Patient Social History Marrital Status: single Employed/Student: employed Alcohol Use: Occasionally Uses (drinks 1-2 times per month, consisting of 6-7 beers ) Alcohol Beverage of Choice: Beer Recreational Drug Use: No Smoking Status: Former Smoker Former Smoker, Quit: Oct 02, 2012 (7 years ago ) Type Used: Cigars 2nd Hand Smoke Exposure: No Physical Abuse Screen: No Sexual Abuse: No Recent Foreign Travel: No Contact w/other who traveled: No Recent Infectious Disease Expo: No Seasonal Allergies Seasonal Allergies: No Past Medical History Currently Using CPAP: No Currently Using BIPAP: No Reproductive: No Sexually Transmitted Disease: No HIV/AIDS: No Musculoskeletal: Scoliosis Endocrine: Hypothyroidsim Loss of Vision: Denies Hearing Impairment: Denies History of Blood Disorders: No Family History Hypertension 19 MOTHER Severe allergy 19 FATHER (SEASONAL-ALL YEAR) Thyroid disease 19 MOTHER No Pertinent Family Hx Review of Systems Constitutional: No no symptoms reported, No see HPI, No chills, No diaphoresis, No dizziness, No fever; malaise; No weakness, No weight gain, No weight loss, No other EENTM: No see HPI, No no symptoms reported, No ear discharge, No hearing loss, No ear pain, No blurred vision, No double vision, No eye pain, No tearing, No vision loss, No dental problems, No hoarseness, No mouth pain, No mouth swelling, No epistaxis, No nose congestion, No nose pain, No throat pain, No th roat swelling, No other Respiratory: No no symptoms reported, No see HPI, No cough, No dyspnea on exertion, No hemoptysis, No orthopnea, No phlegm; short of breath; No stridor, N o wheezing, No other Cardiovascular: No no symptoms reported, No see HPI, No chest pain, No edema, No Hx of Intervention, No palpitations, No syncope, No vascular heart diseas, No other Gastrointestinal: No RUQ, No LUQ, No RLQ, No LLQ, No no symptoms reported, No see HPI, No abdominal pain, No constipation, No diarrhea, No dysphagia, No hematemesis, No heartburn, No jaundice, No loss of appetite, No melena; nausea; No vomiting, No other Genitourinary: No no symptoms reported, No see HPI, No decreased output, No discharge, No dysuria, No frequency, No hematuria, No hesitancy, No incontinence, No nocturia, No pain, No other Musculoskeletal: No no symptoms reported, No see HPI; back pain; No gout, No joint pain, No joint swelling, No muscle pain, No muscle stiffness, No muscle cramps, No muscle twitching, No muscle weakness, No neck pain, No other Skin: no symptoms reported Psychiatric/Neurological: No Symptoms Reported Physical Exam Physical Exam Vital Signs Vital Signs - First Documented 10/25/19 10/25/19 11:22 13:46 Temp 36.7 Pulse 96 Resp 18 B/P (MAP) 92/58 (69) Pulse Ox 100 O2 Delivery Room Air Capillary Refill : Less Than 3 Seconds Height, Weight, BMI Height: 5'8" Weight: 160lbs. oz. 72.484915oa; 23.43 BMI Method:Stated General Appearance: No Apparent Distress, WD/WN Eyes: Bilateral Eye Normal Inspection, Bilateral Eye PERRL, Bilateral Eye EOMI HEENT: PERRL/EOMI, Pharynx Normal, Moist Mucous Membranes Respiratory: Chest Non Tender, Lungs Clear, Normal Breath Sounds, No Accessory Muscle Use, No Respiratory Distress Cardiovascular: Regular Rate, Rhythm, No Edema, No Gallop, No JVD, No Murmur, Normal Peripheral Pulses Gastrointestinal: Normal Bowel Sounds, No Organomegaly, No Pulsatile Mass, Non Tender, Soft Extremity: Normal Capillary Refill, Normal Inspection, Normal Range of Motion, Non Tender, No Calf Tenderness, No Pedal Edema Neurologic/Psychiatric: Alert, Oriented x3, No Motor/Sensory Deficits, Normal Mood/Affect, it support consultant II-XII Norm as Tested Skin: Normal Color, Warm/Dry Lymphatic: No Adenopathy Results Results/Procedures Labs Laboratory Tests 10/25/19 11:33 Patient resulted labs reviewed. Imaging: Reviewed Imaging Films, Reviewed Imaging Report Assessment/Plan Admission Diagnosis Hyponatremia Admission Status: Observation Assessment and Plan Hyponatremia: - Fluid restriction, no more than 2 L per day of free fluid - Urine Sodium studies and PM Cortisol studies pending - IVF NS 100 mL/hr - Normal diet as tolerated - BMP Q8H Hypothyroidism: - Continue Synthroid 125 mcg PO QD DVT Pro[place]axis: [place] [facility] [place] Clinical Quality Measures DVT/VTE Risk/Contraindication: RFS Level Per Nursing on Admit: 0=No Risk/No VTE PPX VIGNESH GILBERT MD 10/25/19 1630: Past Owsclyp-Lfyibv-Krpria Hx Past Med/Social Hx: Reviewed Nursing Past Med/Soc Hx Family History Hypertension 19 MOTHER Severe allergy 19 FATHER (SEASONAL-ALL YEAR) Thyroid disease 19 MOTHER Assessment/Plan Assessment and Plan Severe hyponatremia noted on labs today. Likely cause of symptoms at this time but no altered mental status or need for hypertonic saline. Will do free water restriction and given NS at this time. Check BMP tonight to monitor for response. AM cortisol, urine Na, and urine osm ordered. Diagnosis/Problems Diagnosis/Problems (1) Hyponatremia Status: Acute (2) Hypothyroidism Status: Acute Qualifiers: Hypothyroidism type: unspecified Qualified Codes: E03.9 - Hypothyroidism, unspecified Supervisory-Addendum Brief Verification & Attestation Participated in pt care: history, MDM, physical Personally performed: exam, history, MDM, supervision of care Care discussed with: Medical Student Procedures: n/a Results interpretation: Verified all documentation Verification and Attestation of Medical Student E/M Service A medical student performed and documented this service in my presence. I reviewed and verified all information documented by the medical student and made modifications to such information, when appropriate. I personally performed the physical exam and medical decision making. Vignesh Gilbert, Oct 25, 2019,16:26 [facility] Oct 25, 2019 15:50 VIGNESH GILBERT MD Oct 25, 2019 16:30
[2019-10-25 16:00] VITALS: BP 87/58
[2019-10-25 17:03] VITALS: BP_SYST 91; BP_SYST 95; BP_SYST 99; BP_DIAS 57; BP_DIAS 65; BP_DIAS 66
[2019-10-25 17:08] LABS: BILIRUBIN,URINE NEGATIVE (NEGATIVE); CLARITY,URINE CLEAR; COLOR,URINE YELLOW; GLUCOSE, URINE (UA) NEGATIVE (NEGATIVE); KETONES,URINE NEGATIVE (NEGATIVE); LEUKOCYTE ESTERASE ,URINE NEGATIVE (NEGATIVE); NITRITE,URINE NEGATIVE (NEGATIVE); PROTEIN,URINE NEGATIVE (NEGATIVE)
[2019-10-25 17:16] LABS: BACTERIA,URINE NEGATIVE /HPF
[2019-10-25 17:57] LABS: AMPHETAMINE SCREEN, URINE NEGATIVE (NEGATIVE); BARBITURATE SCREEN URINE NEGATIVE (NEGATIVE); BENZODIAZEPINES SCREEN URINE NEGATIVE (NEGATIVE); CANNABINOID SCREEN, URINE NEGATIVE (NEGATIVE); COCAINE SCREEN URINE NEGATIVE (NEGATIVE); METHADONE STAT NEGATIVE (NEGATIVE); METHAMPHETAMINE SCREEN URINE S NEGATIVE (NEGATIVE); OPIATE SCREEN URINE NEGATIVE (NEGATIVE); OXYCODONE STAT NEGATIVE (NEGATIVE); PROPOXYPHENE STAT NEGATIVE (NEGATIVE); TRICYCLIC ANTIDEPRESSANTS SCRE NEGATIVE (NEGATIVE)
[2019-10-25 19:37] LABS: BUN/CREATININE RATIO 18; CALCIUM 8.5 MG/DL (8.5-10.1); CARBON DIOXIDE 22 MMOL/L (21-32); CHLORIDE 92 MMOL/L (98-107); CREATININE SERUM 1.06 MG/DL (0.60-1.30); GFR ESTIMATED > 60; GLUCOSE 73 MG/DL (70-105); POTASSIUM 4.6 MMOL/L (3.6-5.0)
[2019-10-25 19:55] LABS: SODIUM 121 MMOL/L (135-145)
[2019-10-25 20:00] VITALS: BP 99/56
--- NOTE | 2019-10-25 20:00 | NUR ---
1953 - Received critical result from Lab, Sodium = 121. Notified Dr. Lowe. 1999 - Received orders from Dr. Lowe to increase fluid rate to 250cc/hr for the next 2 bags and to decrease it to 150cc/hr afterwards; repeat BMP in AM and schedule lab draw at 7am. Will follow orders.
[2019-10-25 23:37] VITALS: BP 97/57
[2019-10-26] VITALS (7 sets, daily range): BP systolic 83–97; BP diastolic 56–66
[2019-10-26] MEDS: NS IV 1000 ML 1,000 ML IV SCH ×4 (01:50→20:09)
[2019-10-26] MEDS ORDERED: NS IV 1000 ML 1,000 ML ONE (05:45)
[2019-10-26 07:40] LABS: BUN/CREATININE RATIO 19; CALCIUM 8.5 MG/DL (8.5-10.1); CARBON DIOXIDE 22 MMOL/L (21-32); CHLORIDE 104 MMOL/L (98-107); CREATININE SERUM 0.96 MG/DL (0.60-1.30); GFR ESTIMATED > 60; GLUCOSE 75 MG/DL (70-105); POTASSIUM 5.4 MMOL/L (3.6-5.0); SODIUM 129 MMOL/L (135-145)
--- NOTE | 2019-10-26 08:55 | Progress Note - Hospitalist ---
[facility] 10/26/19 0855: Subjective HPI/CC On Admission Date Seen by Provider: Oct 26, 2019 Time Seen by Provider: 08:00 Mr. Overton is a 29 yo WM who is presenting due to fatigue, restlessness, and shortness of breathe. He was recently hospitalized for hyponatremia, myxedema coma, dehydration, and hyponatremic hypovolemia, after repeated bouts of vomiting and inability to hold food down as well as stopping his Synthroid for about a month prior to his exacerbation. He was treated with Synthroid, glucoc orticoids and fluids, resulting in a rapid recovery. He states that after his hospitalization, "he felt the best in his life". He stated that since this time, he has progressively been feeling worse, and the past 4-5 days has expressed a drastic worsening of his symptoms. He states that he has been adamantly taking his Synthroid, since his last hospitalization. He also commented on excessively drinking water throughout the day, guessing that he drinks '100 - 200 oz'. Subjective/Events-last exam Patient states that he is doing well. Reports no issues sleeping, eating and dr inking, voiding or defalcating. Patient reports that he feels better and that his presenting symptoms are improving. Review of Systems General: No Chills, No Night Sweats, No Fatigue, No Malaise, No Appetite, No Other HEENT: No Head Aches, No Visual Changes, No Eye Pain, No Ear Pain, No Dysphasia, No Sinus Congestion, No Post Nasal Drip, No Sore Throat, No Other Pulmonary: No Dyspnea, No Cough, No Pleuritic Chest Pain, No Other Cardiovascular: No: Chest Pain, Palpitations, Orthopnea, Paroxysmal Noc. Dyspnea, Edema, Lt Headedness, Other Gastrointestinal: No: Nausea, Vomiting, Abdominal Pain, Diarrhea, Constipation, Melena, Hematochezia, Other Genitourinary: No Dysuria, No Frequency, No Incontinence, No Hematuria, No Retention, No Other Musculoskeletal: back pain; No: other, neck pain, shoulder pain, arm pain, hand pain, leg pain, foot pain Neurological: No: Weakness, Numbness, Incoordination, Change in speech, Confusion, Seizures, Other Focused Exam Respiratory: Chest Non Tender, Lungs Clear, Normal Breath Sounds, No Accessory Muscle Use, No Respiratory Distress Cardiovascular: Regular Rate, Rhythm, No Edema, No Gallop, No JVD, No Murmur, Normal Peripheral Pulses Peripheral Pulses: 2+ Dorsalis Pedis (R), 2+ Left Dors-Pedis (L), 2+ Radial Pulses (R), 2+ Radial Pulses (L) Skin: normal color, warm/dry Objective Exam Vital Signs Vital Signs Date Time Temp Pulse Resp B/P (MAP) Pulse Ox O2 Delivery O2 Flow Rate FiO2 10/26/19 08:24 36.6 88 16 92/61 (71) 98 Room Air Capillary Refill : Less Than 3 Seconds General Appearance: No Apparent Distress, WD/WN Respiratory: Chest Non Tender, Lungs Clear, Normal Breath Sounds, No Accessory Muscle Use, No Respiratory Distress Cardiovascular: Regular Rate, Rhythm, No Edema, No Gallop, No JVD, No Murmur, Normal Peripheral Pulses Gastrointestinal: Normal Bowel Sounds, No Organomegaly, No Pulsatile Mass, Non Tender, Soft Extremity: Normal Capillary Refill, Normal Inspection, Normal Range of Motion, Non Tender, No Calf Tenderness, No Pedal Edema Neurologic/Psychiatric: Alert, Oriented x3, No Motor/Sensory Deficits, Normal Mood/Affect, 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 Imaging: Reviewed Imaging Films, Reviewed Imaging Report Assessment/Plan Assessment and Plan Assess & Plan/Chief Complaint Hyponatremia: - Fluid restriction, no more than 2 L per day of free fluid - Urine Sodium studies still pending - AM Cortisol is low, ACTH test and Plasma Renin Activity testing possibly - IVF NS 100 mL/hr - Normal diet as tolerated - BMP Q8H Hypothyroidism: - Continue Synthroid 125 mcg PO QD DVT Prophylaxis: - SCD's Clinical Quality Measures DVT/VTE Risk/Contraindication: RFS Level Per Nursing on Admit: 0=No Risk/No VTE PPX VIGNESH GILBERT MD 10/26/19 2676: Assessment/Plan Assessment and Plan Assess & Plan/Chief Complaint Patient reports feeling better today but not back to normal. Na 129 this morning. AM cortisol low. Waiting on urine studies. Discussed with Dr Vazquez given my concern for adrenal insufficiency. Will start on Solu-Cortef after further labs are drawn. Will need endocrinology follow up as an outpatient. H opefully be able to discharge tomorrow. Supervisory-Addendum Brief Verification & Attestation Participated in pt care: history, MDM, physical Personally performed: exam, history, MDM, supervision of care Care discussed with: Medical Student Procedures: n/a Results interpretation: Verified all documentation Verification and Attestation of Medical Student E/M Service A medical student performed and documented this service in my presence. I reviewed and verified all information documented by the medical student and made modifications to such information, when appropriate. I personally performed the physical exam and medical decision making. Vignesh Gilbert, Oct 26, 2019,14:46 [facility] Oct 26, 2019 08:55 VIGNESH GILBERT MD Oct 26, 2019 14:56
[2019-10-26] MEDS: LEVOTHYROXINE 125 MCG (LEVOTHROID) TABLET PO SCH (09:09)
--- NOTE | 2019-10-26 13:01 | Pulmonary Consultation ---
History of Present Illness History of Present Illness Date Seen by Provider: Oct 26, 2019 Time Seen by Provider: 12:55 Date of Admission History of Present Illness 29yo with hx of hypothyroid and recent hospitalization secondary to myxedema coma (after stoping synthryoid secondary to n/v), dehydration and hyponatremia presented to ED secondary to fatigue, and wosening SOB. Pt states he has been taking Synthroid daily since discharge. PT was found to have hyponatremia upon admission. Allergies and Home Medications Allergies Coded Allergies: No Known Drug Allergies (Unverified , 12/04/11) Home Medications Levothyroxine Sodium 125 Mcg Tablet, 125 MCG PO DAILY, (Reported) Multivitamin 1 Each Tablet, 1 EACH PO DAILY, (Reported) Past Dpckaox-Vkyaly-Rkerqk Hx Past Med/Social Hx: Reviewed Nursing Past Med/Soc Hx Patient Social History Alcohol Use: Occasionally Uses Alcohol Beverage of Choice: Beer Recreational Drug Use: No Smoking Status: Former Smoker Type Used: Cigars Former Smoker, Quit: Oct 02, 2012 2nd Hand Smoke Exposure: No Recent Foreign Travel: No Contact w/Someone Who Travel: No Recent Infectious Disease Expo: No Seasonal Allergies Seasonal Allergies: No Past Medical History Surgeries: No Respiratory: No Currently Using CPAP: No Currently Using BIPAP: No Cardiac: No Neurological: No Reproductive Disorders: No Sexually Transmitted Disease: No HIV/AIDS: No Gastrointestinal: No Musculoskeletal: No Scoliosis Endocrine: Yes Hypothyroidsim Loss of Vision: Denies Hearing Impairment: Denies Cancer: No Psychosocial: No Integumentary: No Blood Disorders: No Family Medical History Hypertension 19 MOTHER Severe allergy 19 FATHER (SEASONAL-ALL YEAR) Thyroid disease 19 MOTHER No Pertinent Family Hx Sepsis Event Evaluation Height, Weight, BMI Height: 5'8" Weight: 160lbs. oz. [id number]; 23.43 BMI Method:Stated Exam Exam Vital Signs Date Time Temp Pulse Resp B/P (MAP) Pulse Ox O2 Delivery O2 Flow Rate FiO2 10/26/19 08:24 36.6 88 16 92/61 (71) 98 Room Air 10/26/19 07:30 Room Air 10/26/19 04:00 36.7 93 18 88/66 (73) 99 Room Air 10/26/19 00:00 36.8 92 18 83/56 (65) 100 Room Air 10/25/19 20:00 37.0 90 18 99/56 (70) 100 Room Air 10/25/19 20:00 Room Air 10/25/19 17:03 80 91/57 (68) 81 95/65 (75) 96 99/66 (77) 10/25/19 16:00 36.8 86 18 87/58 (68) 98 Room Air 10/25/19 14:34 97 Room Air 10/25/19 14:29 36.7 77 20 102/64 97 Room Air 10/25/19 13:46 88 18 98/50 98 I & O 10/26/19 07:00 Intake Total 3500 ml Balance 3500 ml Height & Weight Height: 5'8" Weight: 160lbs. oz. 72.522954ri; 23.43 BMI Method:Stated General Appearance: No Apparent Distress, WD/WN HEENT: PERRL/EOMI, Pharynx Normal, Moist Mucous Membranes Neck: Full Range of Motion, Normal Inspection Respiratory: Chest Non Tender, Lungs Clear, Normal Breath Sounds, No Accessory Muscle Use, No Respiratory Distress Cardiovascular: Regular Rate, Rhythm, No Edema, No Gallop, No JVD, No Murmur, Normal Peripheral Pulses Capillary Refill: Less Than 3 Seconds Peripheral Pulses: 2+ Dorsalis Pedis (R), 2+ Left Dors-Pedis (L), 2+ Radial Pulses (R), 2+ Radial Pulses (L) Extremity: Normal Capillary Refill, Normal Inspection, Normal Range of Motion, Non Tender, No Calf Tenderness, No Pedal Edema Neurologic/Psychiatric: Alert, Oriented x3, No Motor/Sensory Deficits, Normal Mood/Affect, roll filler II-XII Norm as Tested Skin: Normal Color, Warm/Dry Lymphatic: No Adenopathy Results Lab Laboratory Tests 10/25/19 11:33 10/25/19 16:05 10/26/19 07:15 Assessment/Plan Assessment/Plan Hyponatremia -probable adrenal insuff primary vs secondary -Check Renin, ACTH, and aldosterone -Consider MRI of brain to r/o pituitary adenoma/mass -Start solucortef Hypotension -Start solucortef -IVF hyperkalemia -Repeat labs -Start telemetry Hypothyroidism: - Synthroid 125 mcg PO QD MARY ANN HINDS DO Oct 26, 2019 13:01
[2019-10-26 17:02] LABS: ALANINE AMINOTRANSFERASE 57 U/L (0-55); ALBUMIN 3.9 GM/DL (3.2-4.5); ALKALINE PHOSPHATASE 60 U/L (40-136); BILIRUBIN,TOTAL 0.3 MG/DL (0.1-1.0); BUN/CREATININE RATIO 16; CALCIUM 8.8 MG/DL (8.5-10.1); CARBON DIOXIDE 23 MMOL/L (21-32); CHLORIDE 103 MMOL/L (98-107); CREATININE SERUM 1.01 MG/DL (0.60-1.30); GFR ESTIMATED > 60; GLUCOSE 73 MG/DL (70-105); PHOSPHORUS 3.7 MG/DL (2.3-4.7); SODIUM 132 MMOL/L (135-145); TOTAL PROTEIN 6.8 GM/DL (6.4-8.2)
[2019-10-26] MEDS ORDERED: HYDROCORTISONE 100 MG/2 ML (Solu-CORTEF) VIAL IV SCH (20:00)
[2019-10-27] MEDS: NS IV 1000 ML 1,000 ML IV SCH ×3 (03:22→10:22)
[2019-10-27 04:00] VITALS: BP 94/55
[2019-10-27] MEDS: HYDROCORTISONE 100 MG/2 ML (Solu-CORTEF) VIAL IV SCH ×2 (05:36→12:14)
[2019-10-27] MEDS: LEVOTHYROXINE 125 MCG (LEVOTHROID) TABLET PO SCH (05:36)
[2019-10-27 05:56] LABS: BUN/CREATININE RATIO 16; CALCIUM 8.7 MG/DL (8.5-10.1); CARBON DIOXIDE 19 MMOL/L (21-32); CHLORIDE 106 MMOL/L (98-107); CREATININE SERUM 1.03 MG/DL (0.60-1.30); GFR ESTIMATED > 60; GLUCOSE 113 MG/DL (70-105); POTASSIUM 5.1 MMOL/L (3.6-5.0); SODIUM 133 MMOL/L (135-145)
[2019-10-27 08:00] VITALS: BP 113/58
--- NOTE | 2019-10-27 08:22 | Progress Note - Hospitalist ---
Subjective HPI/CC On Admission Date Seen by Provider: Oct 27, 2019 Time Seen by Provider: 08:15 Mr. Overton is a 29 yo WM who is presenting due to fatigue, restlessness, and shortness of breathe. He was recently hospitalized for hyponatremia, myxedema coma, dehydration, and hyponatremic hypovolemia, after repeated bouts of vomiting and inability to hold food down as well as stopping his Synthroid for about a month prior to his exacerbation. He was treated with Synthroid, glucocorticoids and fluids, resulting in a rapid recovery. He states that after his hospitalization, "he felt the best in his life". He stated that since this time, he has progressively been feeling worse, and the past 4-5 days has expressed a drastic worsening of his symptoms. He states that he has been adamantly taking his Synthroid, since his last hospitalization. He also commented on excessively drinking water throughout the day, guessing that he dri nks '100 - 200 oz'. Subjective/Events-last exam Mr. Overton states that he is overall feeling much better. He states that he was able to sleep well last night. He also comments on his restlessness and fatigue being practically gone. He stated that he wants to see how he feels after walking around the unit today. The only complaint he has is the current water restriction that he is on. Review of Systems General: No Chills, No Night Sweats, No Fatigue, No Malaise, No Appetite, No Other HEENT: No Head Aches, No Visual Changes, No Eye Pain, No Ear Pain, No Dysphasia, No Sinus Congestion, No Post Nasal Drip, No Sore Throat, No Other Pulmonary: No Dyspnea, No Cough, No Pleuritic Chest Pain, No Other Cardiovascular: No: Chest Pain, Palpitations, Orthopnea, Paroxysmal Noc. Dys pnea, Edema, Lt Headedness, Other Gastrointestinal: No: Nausea, Vomiting, Abdominal Pain, Diarrhea, Constipation, Melena, Hematochezia, Other Genitourinary: No Dysuria, No Frequency, No Incontinence, No Hematuria, No Retention, No Other Musculoskeletal: No: other, neck pain, shoulder pain, arm pain, back pain, hand pain, leg pain, foot pain Neurological: No: Weakness, Numbness, Incoordination, Change in speech, Confusion, Seizures, Other Focused Exam Respiratory: Chest Non Tender, Lungs Clear, Normal Breath Sounds, No Accessory Muscle Use, No Respiratory Distress Cardiovascular: Regular Rate, Rhythm, No Edema, No Gallop, No JVD, No Murmur, Normal Peripheral Pulses Peripheral Pulses: 2+ Dorsalis Pedis (R), 2+ Left Dors-Pedis (L), 2+ Radial Pulses (R), 2+ Radial Pulses (L) Skin: normal color, warm/dry Objective Exam Vital Signs Vital Signs Date Time Temp Pulse Resp B/P (MAP) Pulse Ox O2 Delivery O2 Flow Rate FiO2 10/27/19 12:28 36.8 100 20 129/68 (88) 97 Room Air Capillary Refill : Less Than 3 Seconds General Appearance: No Apparent Distress, WD/WN Respiratory: Chest Non Tender, Lungs Clear, Normal Breath Sounds, No Accessory Muscle Use, No Respiratory Distress Cardiovascular: Regular Rate, Rhythm, No Edema, No Gallop, No JVD, No Murmur, Normal Peripheral Pulses Gastrointestinal: Normal Bowel Sounds, No Organomegaly, No Pulsatile Mass, Non Tender, Soft Neurologic/Psychiatric: Alert, Oriented x3, No Motor/Sensory Deficits, Normal Mood/Affect, 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 Imaging: Reviewed Imaging Films, Reviewed Imaging Report Assessment/Plan Assessment and Plan Assess & Plan/Chief Complaint Hyponatremia: - Fluid restriction, no more than 2 L per day of free fluid - Urine osmolarity 396 - ACTH test and Plasma Renin Activity pending - IVF NS 110 mL/hr - Normal diet as tolerated - BMP QD Hypothyroidism: - Continue Synthroid 125 mcg PO QD DVT Prophylaxis: - SCD's - Ambulation, no restriction Clinical Quality Measures DVT/VTE Risk/Contraindication: RFS Level Per Nursing on Admit: 0=No Risk/No VTE PPX EMILY MCGHEE Oct 27, 2019 08:22
--- NOTE | 2019-10-27 10:24 | Pulmonary Progress Note ---
Subjective Time Seen by a Provider: 10:23 Sepsis Event Evaluation Height, Weight, BMI Height: 5'8" Weight: 160lbs. oz. 72.479994dv; 23.43 BMI Method:Stated Exam Exam Vital Signs Date Time Temp Pulse Resp B/P (MAP) Pulse Ox O2 Delivery O2 Flow Rate FiO2 10/27/19 08:00 37.0 108 20 113/58 (76) 100 Room Air 10/27/19 08:00 Room Air 10/27/19 07:00 124 10/27/19 04:00 36.8 98 20 94/55 (68) 100 Room Air 10/27/19 01:00 99 10/26/19 23:11 36.7 102 20 97/63 (74) 100 Room Air 10/26/19 20:15 Room Air 10/26/19 20:00 37.2 101 18 97/56 (70) 99 Room Air 10/26/19 19:00 109 10/26/19 17:03 96 10/26/19 16:00 37.2 96 20 92/60 (71) 93 Room Air 10/26/19 12:00 36.8 80 20 90/59 (69) 95 Room Air I & O 10/27/19 07:00 Intake Total 1000 ml Balance 1000 ml Height & Weight Height: 5'8" Weight: 160lbs. oz. 72.227154ee; 23.43 BMI Method:Stated General Appearance: No Apparent Distress, WD/WN HEENT: PERRL/EOMI, Pharynx Normal, Moist Mucous Membranes Neck: Full Range of Motion, Normal Inspection Respiratory: Chest Non Tender, Lungs Clear, Normal Breath Sounds, No Accessory Muscle Use, No Respiratory Distress Cardiovascular: Regular Rate, Rhythm, No Edema, No Gallop, No JVD, No Murmur, Normal Peripheral Pulses Capillary Refill: Less Than 3 Seconds Peripheral Pulses: 2+ Dorsalis Pedis (R), 2+ Left Dors-Pedis (L), 2+ Radial Pulses (R), 2+ Radial Pulses (L) Extremity: Normal Capillary Refill, Normal Inspection, Normal Range of Motion, Non Tender, No Calf Tenderness, No Pedal Edema Neurologic/Psychiatric: Alert, Oriented x3, No Motor/Sensory Deficits, Normal Mood/Affect, visual coordinator II-XII Norm as Tested Skin: Normal Color, Warm/Dry Lymphatic: No Adenopathy Results Lab Laboratory Tests 10/25/19 11:33 10/25/19 16:05 10/26/19 07:15 10/26/19 16:36 10/27/19 04:25 Assessment/Plan Assessment/Plan Hyponatremia -probable adrenal insuff primary vs secondary -Check Renin, ACTH, and aldosterone -Consider MRI of brain to r/o pituitary adenoma/mass -solucortef Hypotension -Start solucortef -IVF hyperkalemia -Repeat labs -Start telemetry Hypothyroidism: - Synthroid 125 mcg PO QD MARY ANN HINDS DO Oct 27, 2019 10:24
[2019-10-27 12:28] VITALS: BP 129/68
[2019-10-27] MEDS ORDERED: FLDR.1T PO (14:10)
[2019-10-27] MEDS ORDERED: PRED5TAB PO (14:10)
--- NOTE | 2019-10-27 14:12 | Discharge Inst-Simple/Standard ---
Discharge Inst-Standard Reconcile Patient Problems Problems Reviewed?: Yes Discharge Medications New, Converted or Re-Newed RX: Transmitted to Pharmacy Patient Instructions/Follow Up Plan of Care/Instructions/FU: Please continue to take your medications as written. Please follow up with your Primary ASSISTANT PROFESSOR OF [employer] Reena Cabrera and Dr Garcias as scheduled. Please do not stop taking your medications unless advised by your doctor. If you are ill or having surgery please see your doctor for stress dosing of steroids. Activity as Tolerated: Yes Discharge Diet: No Restrictions Return to The Hospital For: Confusion, weakness, low blood pressure, if you feel you are getting worse. VIGNESH GILBERT MD Oct 27, 2019 14:12
--- NOTE | 2019-10-27 14:57 | Discharge Summary ---
EMILY MCGHEE [facility] 10/27/19 1457: Diagnosis/Chief Complaint Date of Admission Oct 25, 2019 at 12:46 Date of Discharge Discharge Date: Oct 27, 2019 Discharge Time: 14:53 Admission Diagnosis Hyponatremia Primary Care Sindhu Cabrerap,[facility] Discharge Diagnosis Adrenal Insufficiency, Hyponatremia (1) Hyponatremia Status: Chronic (2) Hypothyroidism Status: Chronic Discharge Summary Discharge Physical Exam Allergies: Coded Allergies: No Known Drug Allergies (Unverified , 12/04/11) Vitals & I&Os Vital Signs Date Time Temp Pulse Resp B/P (MAP) Pulse Ox O2 Delivery O2 Flow Rate FiO2 10/27/19 12:28 36.8 100 20 129/68 (88) 97 Room Air General Appearance: No Apparent Distress, WD/WN Respiratory: Chest Non Tender, Lungs Clear, Normal Breath Sounds, No Accessory Muscle Use, No Respiratory Distress Cardiovascular: Regular Rate, Rhythm, No Edema, No Gallop, No JVD, No Murmur, Normal Peripheral Pulses Gastrointestinal: Normal Bowel Sounds, No Organomegaly, No Pulsatile Mass, Non Tender, Soft Extremity: Normal Capillary Refill, Normal Inspection, Normal Range of Motion, Non Tender, No Calf Tenderness, No Pedal Edema Skin: Normal Color, Warm/Dry Neurologic/Psychiatric: Alert, Oriented x3, No Motor/Sensory Deficits, Normal Mood/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 Overton was admitted for fatigue and restlessness due to hyponatremia. He has a morning cortisol, urine osmolarity and urine sodium obtained. His cortisol was well below normal levels, he was given a dose of hydrocortisone IV and stated a marked improvement. After obtaining an normal osmolarity and sodium, his diagnosis of adrenal insufficiency was given. He has been referred to Dr. Garcias, Endocrinology, and recommended to see his CAP PARTS CUTTER, Reena, in a week. Labs (last 24 hrs) Laboratory Tests 10/26/19 16:36: Sodium Level 132L, Potassium Level 5.0, Chloride Level 103, Carbon Dioxide Level 23, Anion Gap 6, Blood Urea Nitrogen 16, Creatinine 1.01, Estimat Glomerular Filtration Rate > 60, BUN/Creatinine Ratio 16, Glucose Level 73, Calcium Level 8.8, Corrected Calcium 8.9, Phosphorus Level 3.7, Total Bilirubin 0.3, Aspartate Amino Transf (AST/SGOT) 51H, Alanine Aminotransferase (ALT/SGPT) 57H, Alkaline Phosphatase 60, Total Protein 6.8, Albumin 3.9 10/27/19 04:25: Sodium Level 133L, Potassium Level 5.1H, Chloride Level 106, Carbon Dioxide Level 19L, Anion Gap 8, Blood Urea Nitrogen 16, Creatinine 1.03, Estimat Glomerular Filtration Rate > 60, BUN/Creatinine Ratio 16, Glucose Level 113H, Calcium Level 8.7, Erythrocyte Sedimentation Rate 29H, C-Reactive Protein High Sensitivity 0.11 Patient resulted labs reviewed. Imaging: Reviewed Imaging Films, Reviewed Imaging Report Discussion & Recommendations Discharge Planning: <30 minutes discharge planning Discharge Home Medications: Active Scripts Active Prednisone 5 Mg Tablet 5 Mg PO DAILY Fludrocortisone Acetate 0.1 Mg Tab 0.1 Mg PO DAILY Reported One-Daily Multi-Vitamin (Multivitamin) 1 Each Tablet 1 Each PO DAILY Levothyroxine Sodium 125 Mcg Tablet 125 Mcg PO DAILY Instructions to patient/family Please see electronic discharge instructions given to patient. Clinical Quality Measures DVT/VTE Risk/Contraindication: RFS Level Per Nursing on Admit: 0=No Risk/No VTE PPX Copy Copies To 1: NYA GARCIAS DO; OTILIO CABRERA KATELYN M MD 10/29/19 1452: Discharge Summary Discharge Physical Exam Allergies: Coded Allergies: No Known Drug Allergies (Unverified , 12/04/11) Discussion & Recommendations All discharge instructions reviewed with patient and/or family. Voiced understanding. Copy Copies To 1: NYA GARCIAS DO; OTILIO CABRERA DO Supervisory-Addendum Brief Verification & Attestation Participated in pt care: history, MDM, physical Personally performed: exam, history, MDM, supervision of care Care discussed with: Medical Student Procedures: n/a Results interpretation: Verified all documentation Verification and Attestation of Medical Student E/M Service A medical student performed and documented this service in my presence. I reviewed and verified all information documented by the medical student and made modifications to such information, when appropriate. I personally performed the physical exam and medical decision making. Vignesh Gilbert, Oct 29, 2019,14:49 Problem Qualifiers (1) Hypothyroidism: Hypothyroidism type: unspecified Qualified Codes: E03.9 - Hypothyroidism, unspecified EMILY MCGHEE Oct 27, 2019 14:57 VIGNESH GILBERT MD Oct 29, 2019 14:52
--- NOTE | 2019-10-27 15:07 | NUR ---
IV REMOVED. ATTEMPTED TO GIVE DC PAPERS, BUT PT REQUESTS HE TAKE A NAP FIRST. READY FOR DC.
--- NOTE | 2019-10-27 15:30 | NUR ---
RX AND INST REVIEWED AND VERBALIZED UNDERSTANDING. DC'D AMBULATORY TO HOME.
[2019-10-27 21:18] LABS: HEPATITIS C ANTIBODY C Non-Reactive (Non-Reactive)
== END 2019-10-27 15:30 | disposition home or self-care (01) ==
LOC: EDUNIT# 11:06 → ER 11:07 → 4TH 12:46
PROVIDERS: ADMIT Family Medicine; ATTEND Family Medicine
DX: E27.40 Unspecified adrenocortical insufficiency (principal); E87.1 Hypo-osmolality and hyponatremia; E03.9 Hypothyroidism, unspecified; E78.5 Hyperlipidemia, unspecified; M41.9 Scoliosis, unspecified; I95.9 Hypotension, unspecified; Z87.891 Personal history of nicotine dependence; Z79.899 Other long term (current) drug therapy; Z82.49 Family history of ischemic heart disease and other diseases of the circulatory system
CPT/HCPCS: 36415; 71046; 80048; 80053; 80074; 80306; 81000; 82024; 82088; 82533; 83930; 83935; 84100; 84244; 84300; 84439; 84443; 85025; 85652; 86038; 86141; 86703; 96360; G0378